=== PATIENT | female | born 1950 | race Caucasian/White ===

== ENCOUNTER 2016-08-02 09:41 | Day surgery (SDC) | payer MEDICARE, OTHER ==
[~2016-08-02] VITALS: Ht 170.2 cm; Wt 84.5 kg
[~2016-08-02 09:41] MED LIST: DOCU-143 PO; HYDR-3729 PO; IBUP-1773 PO; SIME80TA16 PO
[2016-08-02 10:21] LABS: BASOPHILS % (AUTO) 0 % (0-10); EOSINOPHILS # (AUTO) 0.1 10^3/uL (0.0-0.3); EOSINOPHILS % (AUTO) 1 % (0-10); LYMPHOCYTES # (AUTO) 2.1 X 10^3 (1.0-4.0); LYMPHOCYTES % (AUTO) 25 % (12-44); MEAN CORPUSCULAR HEMOGLOBIN 32 PG (25-34); MEAN CORPUSCULAR HGB CONC 34 G/DL (32-36); MEAN CORPUSCULAR VOLUME 93 FL (80-99); MEAN PLATELET VOLUME 9.8 FL (7.4-10.4); MONOCYTES # (AUTO) 0.5 X 10^3 (0.0-1.0); MONOCYTES % (AUTO) 6 % (0-12); NEUTROPHILS # (AUTO) 5.7 X 10^3 (1.8-7.8); NEUTROPHILS % (AUTO) 67 % (42-75); PLATELET COUNT 263 10^3/uL (130-400); RED BLOOD COUNT 4.65 10^6/uL (4.35-5.85); RED CELL DISTRIBUTION WIDTH 12.3 % (10.0-14.5); WHITE BLOOD COUNT 8.4 10^3/uL (4.3-11.0)
[2016-08-02 10:47] LABS: ALANINE AMINOTRANSFERASE 52 U/L (0-55); ALBUMIN 4.5 G/DL (3.2-4.5); ANION GAP 10 MMOL/L (5-14); ASPARTATE AMINO TRANSFERASE 18 U/L (5-34); BILIRUBIN,TOTAL 0.8 MG/DL (0.1-1.0); BLOOD UREA NITROGEN 17 MG/DL (7-18); BUN/CREATININE RATIO 23; CALCIUM 10.1 MG/DL (8.5-10.1); CARBON DIOXIDE 25 MMOL/L (21-32); CHLORIDE 106 MMOL/L (98-107); CREATININE SERUM 0.74 MG/DL (0.60-1.30); GFR ESTIMATED > 60; GLUCOSE 111 MG/DL (70-105); SODIUM 141 MMOL/L (135-145); TOTAL PROTEIN 7.9 G/DL (6.4-8.2)
--- NOTE | 2016-08-02 11:55 | Diagnostic Imaging Report ---
PROCEDURE: US Gallbladder. TECHNIQUE: Multiple real-time grayscale images were obtained over the right upper quadrant in various projections. Right upper quadrant sonogram INDICATION: Right upper quadrant pain. FINDINGS: The liver demonstrates no evidence of a focal intrahepatic abnormality or evidence of intrahepatic biliary dilatation. There is a large stone within the gallbladder near the gallbladder neck. Gallbladder wall measures 3 mm. There is no evidence of gallbladder wall thickening. The common bile duct could not be demonstrated. The pancreas is obscured by overlying bowel gas. The right kidney is nonobstructed. There is no ascites. The patient did report pain related to the transducer over the gallbladder. IMPRESSION: 1. Large gallstone within the gallbladder with a positive sonographic Brantley's sign. While there is no significant gallbladder wall thickening or evidence of pericholecystic fluid, a HIDA scan would be useful to evaluate for cholecystitis if clinically indicated. Dictated by: Dictated on workstation # [id number]
--- NOTE | 2016-08-02 13:33 | ED Abdominal Pain ---
General Chief Complaint: Abdominal/GI Problems Stated Complaint: PAIN BETWEEN CHEST AND STOMACH Nursing Triage Note: PT C/O RUQ AND EPIGASTRIC PAIN SINCE LAST NIGHT AFTER EATING. Sepsis Screen: No Definite Risk Source of Information: Patient History of Present Illness Time Seen By Provider: 11:01 Initial Comments The patient is a 66-year-old white female whose parents are known to me. She reports that about 1 month ago she had a perhaps 15 minute episode of right upper quadrant pain and epigastric pain following eating. She reports last night she developed pain after eating which has continued unabated until her arrival. This is the fourth episode altogether. She had done some Internet medical exploration and concluded that she had gallbladder disease. She was informed that I thought this to be likely as well. Severity/Quality: Moderate Location: RUQ, Epigastric Radiation: No Radiation Activities at Onset: Other Allergies and Home Medications Allergies Coded Allergies: No Known Drug Allergies (Unverified , 09/18/15) Home Medications Docusate Sodium 100 Mg Capsule, 100 MG PO BID, #60 Prescribed by: EVA ARIAS on 10/22/15 1245 Hydrocodone/Acetaminophen 1 Each Tablet, 1-2 EACH PO Q4H PRN for PAIN, #30 Prescribed by: EVA ARIAS on 10/22/15 1243 Ibuprofen 600 Mg Tablet, 600 MG PO Q6H, #60 Prescribed by: EVA ARIAS on 10/22/15 1245 Simethicone 80 Mg Tab.chew, 80 MG PO Q8H PRN for GAS, #30 Prescribed by: EVA ARIAS on 10/22/15 1245 Review of Systems Constitutional: see HPI EENTM: No Symptoms Reported Respiratory: No Symptoms Reported Gastrointestinal: See HPI, Nausea Genitourinary: No Symptoms Reported Musculoskeletal: no symptoms reported Skin: no symptoms reported Psychiatric/Neurological: No Symptoms Reported Endocrine: No Symptoms Reported Past Fyrbuld-Fujnyl-Rlvqvq Hx Patient Social History Alcohol Use: Denies Use Recreational Drug Use: No Smoking Status: Never a Smoker 2nd Hand Smoke Exposure: No Recent Foreign Travel: No Contact w/Someone Who Travel: No Recent Infectious Disease Expo: No Recent Hopitalizations: No Seasonal Allergies Seasonal Allergies: No Surgeries HX Surgeries: Yes (D&C) Surgeries: Hysterectomy Respiratory Hx Respiratory Disorders: No Cardiovascular Hx Cardiac Disorders: No Neurological Hx Neurological Disorders: No Reproductive System Hx Reproductive Disorders: Yes (PMB) Genitourinary Hx Genitourinary Disorders: No Gastrointestinal Hx Gastrointestinal Disorders: No Musculoskeletal Hx Musculoskeletal Disorders: No HEENT HX ENT Disorders: Yes (glasses, ) Cancer Hx Cancer: No Psychosocial Hx Psychiatric Problems: No Integumentary HX Skin/Integumentary Disorder: No Blood Transfusions Hx Blood Disorders: No Family Medical History Family Medial History: Cardiovascular disease G8 BROTHER Completed stroke 19 FATHER Dementia 19 MOTHER Diabetes mellitus 19 MOTHER Physical Exam Vital Signs VS - Last 72 Hours, by Label 08/02/16 09:45 Temp 97.4 Pulse 57 Resp 20 B/P (MAP) 148/98 Pulse Ox 100 O2 Delivery Room Air Capillary Refill : Less Than 3 Seconds General Appearance: mild distress, moderate distress HEENT: normal ENT inspection Neck: full range of motion Respiratory: chest non-tender, lungs clear, normal breath sounds, no respiratory distress, no accessory muscle use Cardiovascular: normal peripheral pulses, regular rate, rhythm, no edema, no gallop, no JVD, no murmur Gastrointestinal: other (pain to palpation epigastrium and Brantley's point) Extremities: normal range of motion, non-tender, normal inspection, no pedal edema, no calf tenderness, normal capillary refill, pelvis stable Neurologic/Psychiatric: estimation manager II-XII nml as tested, no motor/sensory deficits, alert, normal mood/affect, oriented x 3 Skin: normal color, warm/dry Lymphatic: no adenopathy Progress/Results/Core Measures Results/Orders Lab Results Laboratory Tests Test 08/02/16 10:12 Range/Units White Blood Count 8.4 4.3-11.0 10^3/uL Red Blood Count 4.65 4.35-5.85 10^6/uL Hemoglobin 14.8 11.5-16.0 G/DL Hematocrit 43 35-52 % Mean Corpuscular Volume 93 80-99 FL Mean Corpuscular Hemoglobin 32 25-34 PG Mean Corpuscular Hemoglobin Concent 34 32-36 G/DL Red Cell Distribution Width 12.3 10.0-14.5 % Platelet Count 263 130-400 10^3/uL Mean Platelet Volume 9.8 7.4-10.4 FL Neutrophils (%) (Auto) 67 42-75 % Lymphocytes (%) (Auto) 25 12-44 % Monocytes (%) (Auto) 6 0-12 % Eosinophils (%) (Auto) 1 0-10 % Basophils (%) (Auto) 0 0-10 % Neutrophils # (Auto) 5.7 1.8-7.8 X 10^3 Lymphocytes # (Auto) 2.1 1.0-4.0 X 10^3 Monocytes # (Auto) 0.5 0.0-1.0 X 10^3 Eosinophils # (Auto) 0.1 0.0-0.3 10^3/uL Basophils # (Auto) 0.0 0.0-0.1 10^3/uL Sodium Level 141 135-145 MMOL/L Potassium Level 4.0 3.6-5.0 MMOL/L Chloride Level 106 98-107 MMOL/L Carbon Dioxide Level 25 21-32 MMOL/L Anion Gap 10 5-14 MMOL/L Blood Urea Nitrogen 17 7-18 MG/DL Creatinine 0.74 0.60-1.30 MG/DL Estimat Glomerular Filtration Rate > 60 BUN/Creatinine Ratio 23 Glucose Level 111 H 70-105 MG/DL Calcium Level 10.1 8.5-10.1 MG/DL Total Bilirubin 0.8 0.1-1.0 MG/DL Aspartate Amino Transf (AST/SGOT) 18 5-34 U/L Alanine Aminotransferase (ALT/SGPT) 52 0-55 U/L Alkaline Phosphatase 107 40-136 U/L Total Protein 7.9 6.4-8.2 G/DL Albumin 4.5 3.2-4.5 G/DL My Orders Orders - ALAYNA SCHUSTER MD Cbc With Automated Diff (08/02/16 10:04) Comprehensive Metabolic Panel (08/02/16 10:04) Us Gallbladder [id number] (08/02/16 11:01) Vital Signs/I&O Vital Sign - Last 12Hours 08/02/16 09:45 Temp 97.4 Pulse 57 Resp 20 B/P (MAP) 148/98 Pulse Ox 100 O2 Delivery Room Air Blood Pressure Mean: 115 Departure Communication Progress Notes Ultrasound shows a large gallstone and sonographic probe elicitation of Brantley' s sign [address] Hsieh who is surgery on-call. Patient will be admitted for cholecystectomy in a.m. Impression Impression: Primary Impression: acute cholecystitis Disposition: ADMITTED INPATIENT Condition: Stable/Unchanged Decision to Admit Reason: Admit from ER (General) Decision to Admit/Date: Aug 02, 2016 Time/Decision to Admit Time: 13:36 Departure-Patient Inst. Referrals: RITESH CABRERA MD (PCP) Primary Care Physician EVA ARIAS MD (Family) Primary Care Physician ALAYNA SCHUSTER MD Aug 02, 2016 13:33
[2016-08-02 14:30] VITALS: BP 167/79
[2016-08-02] MEDS: fentaNYL INJECTION 100 MCG/2 ML AMP IV PRN ×2 (14:45→16:59)
[2016-08-02] MEDS: NS IV 1000 ML 1,000 ML IV SCH (14:45)
[2016-08-02] MEDS: metroNIDAZOLE 500 MG/100 ML IVPB (PRE-MIX) IV SCH ×2 (14:53→21:19)
--- NOTE | 2016-08-02 15:44 | HISTORY AND PHYSICAL ---
DATE OF SERVICE: 08/02/2016 PRIMARY CARE PHYSICIAN: Dr. Brigida Rodrigues. HISTORY OF PRESENT ILLNESS: The patient is a 66-year-old female who presented to [facility] Emergency Department with pain in the right upper abdominal quadrant. She reports that approximately 1 month ago she had her first episode, which occurred after eating a meal and persisted for approximately 15 minutes. She ate a meal last night and did develop the same type of pain which was more severe and did not resolve over time. She reports that this is her fourth total episode. She does not report any nausea or vomiting, nor any fever nor chills. An ultrasound was performed, which did show a large gallstone. PAST MEDICAL HISTORY: None. PAST SURGICAL HISTORY: D and C, hysterectomy. ALLERGIES: No known drug allergies. MEDICATIONS: Colace 100 mg b.i.d., ibuprofen p.r.n., hydrocodone p.r.n. SOCIAL HISTORY: Negative smoke. Negative alcohol. FAMILY HISTORY: Father stroke. Mother, diabetes. VITAL SIGNS: Temperature 97.4, blood pressure 148/98, pulse 57, respirations 20, pulse ox 100% on room air. REVIEW OF SYSTEMS: Well-nourished female currently in no acute distress. She is not experiencing shortness of breath or difficulty breathing. No chest pain, palpitations, diaphoresis. No nausea, vomiting with pain in the right upper abdominal quadrant, usually after meals, which is sharp in nature. No diarrhea, constipation. No red blood per rectum, no dark tarry stools. No fever or chills. No recent inadvertent weight loss. PHYSICAL EXAMINATION: CHEST: Clear. HEART: Regular. EXTREMITIES: No lower extremity edema. Negative Homans sign. HEENT: No scleral icterus. NECK: No cervical lymphadenopathy. ABDOMEN: Soft, nondistended. There is pain in the right upper abdominal quadrant upon palpation with voluntary guarding. No rebound. LABORATORY DATA: WBC 8.4, hemoglobin 14.8, hematocrit 43, platelets 263, BUN 17, creatinine 0.74. Total bilirubin 0.8. ASSESSMENT AND PLAN: A 66-year-old female with symptomatic chronic calculous cholecystitis. The natural history of gallbladder disease was explained to the patient including the risks and benefits of surgery. She is in full understanding of the risks and benefits and would like to proceed with a laparoscopic cholecystectomy on this admission, which we will schedule. Job ID: [id number] DocumentID: [id number] Dictated Date: 08/02/2016 15:14:13 Differential Repairer Date: 08/02/2016 15:43:49 Dictated By: RENATO CARLTON MD
[2016-08-02] MEDS: CIPROFLOXACIN 400 MG/D5W 200 ML (PRE-MIX) IV SCH (15:57)
[2016-08-02 15:59] VITALS: BP 144/67
[2016-08-02] MEDS: ONDANSETRON 4 MG/2 ML (SDV) Z0FRAN IVP PRN ×2 (17:04→22:51)
[2016-08-02] MEDS ORDERED: HYDROcodone/APAP 7.5 MG/325 MG (LORTAB, LORCET PLUS) TABLET PO ONE (19:18)
[2016-08-02] MEDS: HYDROcodone/APAP 7.5 MG/325 MG (LORTAB, LORCET PLUS) TABLET PO PRN ×2 (19:23→23:21)
[2016-08-02 19:53] VITALS: BP 123/74
--- NOTE | 2016-08-02 21:06 | Progress Note-Pre Operative ---
Pre-Operative Progress Note H&P Reviewed The H&P was reviewed, patient examined and no changes noted. Date Seen by Provider: Aug 02, 2016 Time Seen by Provider: 18:00 Date H&P Reviewed: Aug 02, 2016 Time H&P Reviewed: 18:00 Pre-Operative Diagnosis: symptomatic chronic calculous cholecystitis RENATO CARLTON MD Aug 02, 2016 21:06
[2016-08-02 23:40] VITALS: BP 119/55
[2016-08-03] MEDS: CIPROFLOXACIN 400 MG/D5W 200 ML (PRE-MIX) IV SCH ×2 (03:20→16:57)
[2016-08-03 04:00] VITALS: BP 119/57
[2016-08-03] MEDS: NS IV 1000 ML 1,000 ML IV SCH ×2 (04:13→18:56)
[2016-08-03] MEDS: ONDANSETRON 4 MG/2 ML (SDV) Z0FRAN IVP PRN (05:25)
[2016-08-03] MEDS: metroNIDAZOLE 500 MG/100 ML IVPB (PRE-MIX) IV SCH ×3 (05:25→21:47)
[2016-08-03 08:35] VITALS: BP 120/59
[2016-08-03] MEDS ORDERED: BUP/EPI 0.5% 1:200,000 (SENSORCAINE) 30 ML VIAL ONE (09:24)
[2016-08-03] MEDS: LACTATED RINGERS 1,000 ML IV PRN ×2 (09:35→10:54)
[2016-08-03] MEDS ORDERED: ROCURONIUM 50 MG/5 ML (ZEMURON) VIAL IV ONE (09:46)
[2016-08-03] MEDS ORDERED: MIDAZOLAM 2 MG/2 ML (VERSED) VIAL ONE (09:46)
[2016-08-03] MEDS ORDERED: SEVOFLURANE (ULTANE) 15 ML INHAL SOLN ONE ×8 (09:46→11:39)
[2016-08-03] MEDS ORDERED: fentaNYL INJECTION 250 MCG/5 ML AMP ONE (09:46)
[2016-08-03] MEDS ORDERED: DEXAMETHASONE PF 10 MG/ML (DECADRON) VIAL ONE (09:46)
[2016-08-03] MEDS ORDERED: proPOfol 200 MG/20 ML (DIPRIVAN) VIAL IV ONE (09:46)
[2016-08-03] MEDS ORDERED: LACTATED RINGERS 1,000 ML IV ONE ×2 (09:46→11:39)
[2016-08-03] MEDS ORDERED: LIDOCAINE PF 2% 5 ML (XYLOCAINE) VIAL ONE (09:46)
[2016-08-03] MEDS ORDERED: ONDANSETRON 4 MG/2 ML (SDV) Z0FRAN ONE (09:46)
[2016-08-03] MEDS ORDERED: PROMETHAZINE INJ 25 MG/ML (PHENERGAN) AMP ONE (10:30)
[2016-08-03] MEDS ORDERED: ceFAZolin 1,000 MG (ANCEF) VIAL IV ONE (10:30)
[2016-08-03] MEDS ORDERED: morphine INJ 10 MG/ML 1ML (SYR OR VIAL) ONE (10:30)
[2016-08-03] MEDS ORDERED: ceFAZolin 1,000 MG (ANCEF) VIAL ONE (11:39)
[2016-08-03] MEDS ORDERED: GLYCOPYRROLATE 0.2 MG/ML (ROBINUL) 2 ML VIAL ONE (11:39)
[2016-08-03] MEDS ORDERED: NEOSTIGMINE (BLOXIVERZ ) 1 MG/1ML 10 ML VIAL ONE (11:39)
--- NOTE | 2016-08-03 12:01 | Progress Note-Post Operative ---
Post-Operative Progess Note Surgeon (s)/Bullet Maker (s) Surgeon RENATO CARLTON MD Bullet Maker: tiffani felton CHINCHILLA MACHINE OPERATOR Pre-Operative Diagnosis symptomatic chronic calculous cholecystitis Post-Operative Diagnosis acute calculous cholecystitis Procedure & Operative Findings Date of Procedure 08/03/16 Procedure Performed/Findings laparoscopic cholecystectomy Anesthesia Type GET Estimated Blood Loss Estimated blood loss (mL): minimal Specimens/Packing Specimens Removed gallbladder RENATO CARLTON MD Aug 03, 2016 12:01 pm
[2016-08-03] MEDS ORDERED: CIPR-225 PO (12:07)
[2016-08-03] MEDS ORDERED: HYDR-3730 PO (12:07)
--- NOTE | 2016-08-03 12:09 | Discharge Inst-Surgical ---
D/C Lap Instructions-BRANDT New, Converted, or Re-Newed RX: RX on Chart Follow Up Appt in 2 weeks Activity as tolerated No driving for 24 hours No driving while on pain medications Incentive Spirometry use every 2 hours while awake Regular Diet Symptoms to Report: Fever over 101 degree F, Nausea/Vomiting Infection Signs and Symptoms to report: Increased redness, Foul odor of wound, Increased drainage Bathing instructions: May shower Operative Area Clean/Dry; Keep incision clean/dry If any problems/questions: Contact your physician or go to Emergency Room RENATO CARLTON MD Aug 03, 2016 12:09 pm
[2016-08-03] MEDS: morphine INJ 10 MG/ML 1ML (SYR OR VIAL) IVP PRN ×2 (12:20→12:39)
[2016-08-03] MEDS ORDERED: ONDANSETRON 4 MG/2 ML (SDV) Z0FRAN IVP PRN (12:30)
[2016-08-03] MEDS ORDERED: PROMETHAZINE INJ 25 MG/ML (PHENERGAN) AMP IVP PRN (12:30)
[2016-08-03] MEDS ORDERED: fentaNYL INJECTION 100 MCG/2 ML AMP IVP PRN (12:30)
[2016-08-03 12:57] VITALS: BP 145/77
[2016-08-03 15:37] VITALS: BP 107/53
[2016-08-03] MEDS: HYDROcodone/APAP 7.5 MG/325 MG (LORTAB, LORCET PLUS) TABLET PO PRN ×2 (16:58→23:46)
--- NOTE | 2016-08-03 19:30 | OPERATIVE REPORT ---
DATE OF SERVICE: 08/03/2016 ATTENDING PHYSICIAN: Dr. Rodrigues. PREOPERATIVE DIAGNOSIS: Chronic calculous cholecystitis. POSTOPERATIVE DIAGNOSIS: Acute calculous cholecystitis. PROCEDURE: Laparoscopic cholecystectomy. SURGEON: Dr. Carlton. PIGMENT PUSHER: Anant Diaz APRN. ANESTHESIA: General endotracheal. ESTIMATED BLOOD LOSS: 50 mL. FINDINGS: Acutely inflamed gallbladder with a large gallstone with gallbladder wall inflammation. DISPOSITION: The patient tolerated the procedure well. The patient is a 66-year-old female who presented to [facility] Emergency Department with right upper abdominal quadrant pain. She had reported that the pain had started the night before and was in the right upper abdominal quadrant with radiation towards the back and this time persisted. She had reported three other episodes with the first one approximately one month ago and each has progressively worsened. An ultrasound was performed which did show a large gallstone. DESCRIPTION OF PROCEDURE: The patient was brought to the operating room, laid supine on the table. After adequate IV pain and sedating medications and general endotracheal intubation, the abdomen was prepped and draped in standard surgical fashion. 0.5% Marcaine with epinephrine was then used to anesthetize the overlying skin in the left upper abdominal quadrant. A small transverse skin incision made using a 15 blade. An 0 silk suture was applied to the medial aspect of the incision for retraction and a Veress needle inserted with a low opening pressure of 0 mmHg and abdomen was then insufflated to 15 mmHg pressure. The Veress needle removed and a 5 mm Xcel trocar placed followed by a 5 mm, 45 degree angle laparoscope visualizing the peritoneal cavity. A 4 quadrant abdominal exploration was performed. There was a mild liver steatosis. There was an inflamed gallbladder, which was dilated as well consistent with acute cholecystitis. Under direct visualization, we then proceeded to place a supraumbilical 10 mm port after the skin and peritoneum were anesthetized using 0.5% Marcaine with epinephrine and a transverse skin incision made using a 15 blade. In a similar manner, a right upper abdominal quadrant 5 mm port was placed. The gallbladder was then decompressed using a laparoscopic needle and the fluid was clear consistent with hydrops of the gallbladder. The fundus of the gallbladder was then retracted anteriorly and superiorly. There were a few omental adhesions to the gallbladder, which were bluntly dissected off. Before this, the patient was placed in reverse Trendelenburg position as well as plane right side up, left side down. The hepatoduodenal ligament was then opened using blunt dissection as well as electrocautery on the hook instrument. The entire critical view of safety was identified including the triangle of Calot as well as the cystic duct and artery going into the gallbladder as well as the liver behind the proximal gallbladder. A timeout was then taken and the cystic duct and artery were then clipped proximally and distally and cut with EndoShears. The gallbladder was then dissected off of the liver bed using electrocautery on the hook instrument with visualization and good hemostasis. There was some oozing identified and Surgicel placed in the hepatic bed. The gallbladder was removed through the 10 mm port site using an EndoCatch bag. A very large solitary stone was identified. The 10 mm port site fascia and peritoneum were then closed using interrupted 3-0 Vicryl transversely using a Cody-Sully device. The abdomen was desufflated and remaining ports removed. All skin incisions were closed using 4-0 Monocryl running subcuticular sutures. Wounds were then cleaned and covered with Dermabond. The patient tolerated the procedure well. We will start IV and oral pain medication as well as a clear liquid diet. Once she is tolerating clears and has good pain control with oral pain medication and is ambulating well, we will discharge her home. Job ID: [id number] DocumentID: [id number] Dictated Date: 08/03/2016 12:15:49 Customs Guard Date: 08/03/2016 19:30:29 Dictated By: RENATO CARLTON MD
[2016-08-03 20:04] VITALS: BP 96/50
[2016-08-04 00:17] VITALS: BP 138/63
[2016-08-04] MEDS: CIPROFLOXACIN 400 MG/D5W 200 ML (PRE-MIX) IV SCH (03:34)
[2016-08-04] MEDS: metroNIDAZOLE 500 MG/100 ML IVPB (PRE-MIX) IV SCH ×2 (05:45→14:09)
[2016-08-04] MEDS: NS IV 1000 ML 1,000 ML IV SCH (07:47)
[2016-08-04 08:00] VITALS: BP 112/57
[2016-08-04] MEDS: HYDROcodone/APAP 7.5 MG/325 MG (LORTAB, LORCET PLUS) TABLET PO PRN (08:52)
--- NOTE | 2016-08-04 15:10 | Progress Note-Standard ---
Standard Progress Note Progress Notes/Assess & Plan Date Seen by Provider: Aug 02, 2016 Time Seen by Provider: 18:00 Progress/Assessment & Plan s/p lap isaac. doing much better today. pain controlled and tolerating diet as well as ambulating. home soon. RENATO CARLTON MD Aug 04, 2016 3:10 pm
== END 2016-08-04 15:09 | disposition home or self-care (01) ==
LOC: EDUNIT# 09:41 → ER 09:43 → SDC 13:45 → 4TH 13:52 → SDC 08-04 15:09
PROVIDERS: ATTEND Surgery Pediatric Surgery
DX: K80.00 Calculus of gallbladder with acute cholecystitis without obstruction (principal)
CPT/HCPCS: 36415; 76705; 80053; 85025; 99283; 99285

== ENCOUNTER → 2019-03-17 | Outpatient (CLI) | payer MEDICARE ==
[~2019-03-17] MED LIST changes: +CEPH-507 PO; +CIPR-225 PO; +HYDR-3730 PO
== END ==
LOC: CARD 11:36
PROVIDERS: ATTEND Nurse Practitioner Family
DX: I49.3 Ventricular premature depolarization (principal); I49.1 Atrial premature depolarization
CPT/HCPCS: 93005

== ENCOUNTER 2021-09-09 08:24 | Emergency (ER) | payer MEDICARE, OTHER ==
[~2021-09-09] VITALS: Ht 172.7 cm; Wt 95.3 kg
[2021-09-09] MEDS ORDERED: NS IV 500 ML 500 ML IV ONE (09:30)
[2021-09-09 09:45] LABS: BASOPHILS % (AUTO) 1 % (0-10); EOSINOPHILS # (AUTO) 0.1 10^3/uL (0.0-0.3); EOSINOPHILS % (AUTO) 1 % (0-10); HEMATOCRIT 46 % (35-52); HEMOGLOBIN 15.7 g/dL (11.5-16.0); LYMPHOCYTES % (AUTO) 25 % (12-44); MEAN CORPUSCULAR HEMOGLOBIN 32 pg (25-34); MEAN CORPUSCULAR HGB CONC 35 g/dL (32-36); MEAN CORPUSCULAR VOLUME 94 fL (80-99); MEAN PLATELET VOLUME 9.5 fL (9.0-12.2); MONOCYTES # (AUTO) 0.5 10^3/uL (0.0-1.0); MONOCYTES % (AUTO) 6 % (0-12); NEUTROPHILS # (AUTO) 5.4 10^3/uL (1.8-7.8); NEUTROPHILS % (AUTO) 67 % (42-75); PLATELET COUNT 247 10^3/uL (130-400)
--- NOTE | 2021-09-09 09:56 | ED Neurological Problem ---
General Chief Complaint: Neuro-Stroke Like Symptoms Stated Complaint: BLURRED VISION,[place] Nursing Triage Note: PT AMBULATE TO ROOM 06 WITHOUT DIFFICULTY WITH C/O RIGHT HAND NUMBNESS AND RIGHT EYE BLURRYNESS ON THURSDAY. PT DENIES NUMBNESS OR BLURRED VISION UPON ARRIVAL. PT REPORTS HEADACHE ABOVE LEFT EYE. PT STATES THAT SHE STOPPED BY A GROUP HOME TO SEE HER MOTHER AFTER SYMPTOMS STARTED TO SEE HER MOTHER AND THE NURSE THERE EVALUATED PT AND TOLD HER SHE SHOULD SEEK FURTHER EVALUATION. PT STATES SHE WENT TO [facility] AND WAS TOLD SHE COULD GO TO THE EMERGENCY DEPARTMENT FOR FURTHER EVALUATION. PT STATES SHE DECIDED TO GO HOME INSTEAD. PT STATES THIS MORNING SHE CALLED DR RODRIGUES'S OFFICE AND TOLD THEM SHE WAS GOING TO THE ED. Source: patient Exam Limitations: no limitations History of Present Illness Date Seen by Provider: Sep 09, 2021 Time Seen by Provider: 09:00 Initial Comments Patient to the ER by private conveyance chief complaint that 2 days ago she started having a little right eye blurriness right arm paresthesias without weakness and a headache behind the eyes more on the left side than right. She does not have a history of migraines or headaches. She does not have a history of strokes heart attacks or arterial disease. She does have a history of father with stroke from a hole in his heart at age 62 and 2 brothers with pacemakers. No history of high blood pressure, cholesterol or diabetes. She does not smoke cigarettes. She does wear glasses. She started to come in yesterday but she went to the custodial instead and had a custodial nurse evaluate her and told her her blood pressure was elevated at 170 systolic and so she decided that she did not need to come to the ER. She went to urgent care at [facility] and they checked her blood pressure and blood sugar and then she went home. Today she was going to follow-up with Dr. Rodrigues her primary care doctor and decided to come to the ER instead. She said in the past she had some blurry vision and a work-up revealed a UTI. She is not having any dysuria or discharge today Allergies and Home Medications Allergies Coded Allergies: No Known Drug Allergies (Unverified , 09/18/15) Patient Home Medication List Home Medication List Reviewed: Yes Cephalexin (Keflex) 500 Mg Capsule, 500 MG PO QID Prescribed by: MICHELLE ARORA on 06/21/17 050 Ciprofloxacin HCl (Cipro) 500 Mg Tablet, 500 MG PO BID Prescribed by: RENATO CARLTON on 08/03/16 1207 Hydrocodone/Acetaminophen (Lortab 7.5-325 mg Tablet) 1 Each Tablet, 1-2 EACH PO Q4H Prescribed by: RENATO CARLTON on 08/03/16 1207 Review of Systems Review of Systems Constitutional: No chills, No diaphoresis Eyes: Denies Blindness, Denies Blurred Vision Ears, Nose, Mouth, Throat: denies ear pain, denies ear discharge Respiratory: No cough, No short of breath Cardiovascular: No chest pain, No edema Gastrointestinal: No abdominal pain, No nausea, No vomiting Genitourinary: No discharge, No dysuria Musculoskeletal: No back pain, No joint pain Skin: No pruritus, No rash All Other Systems Reviewed Negative Unless Noted: Yes Past Bgrmfjg-Wwbtgc-Vtvdvk Hx Patient Social History Tobacco Use?: No Smoking Status: Never a Smoker Smokeless Tobacco Frequency: Never a User Use of E-Cig and/or Vaping dev: No Use of E-Cig and/or Vaping Ck: Never a User Substance use?: No Alcohol Use?: No Pt feels they are or have been: No Immunizations Up To Date 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 Seasonal Allergies Seasonal Allergies: No Past Medical History Surgeries: Yes (D&C) Adenoidectomy, Gallbladder, Hysterectomy, Tonsillectomy Respiratory: No Currently Using CPAP: No Currently Using BIPAP: No Cardiac: No Neurological: No Reproductive Disorders: Yes (PMB) Female Reproductive Disorders: Denies Genitourinary: No Gastrointestinal: No Gall Bladder Disease Musculoskeletal: No Endocrine: No HEENT: No Cancer: No Psychosocial: No Integumentary: No Blood Disorders: No Family Medical History Cardiovascular disease G8 BROTHER Completed stroke 19 FATHER Dementia 19 MOTHER Diabetes mellitus 19 MOTHER Physical Exam Vital Signs Vital Signs - First Documented 09/09/21 08:48 Temp 36.1 Pulse 113 Resp 16 B/P (MAP) 151/90 (110) O2 Delivery Room Air Capillary Refill : Less Than 3 Seconds Height, Weight, BMI Height: 5'8.00" Weight: 183lbs. 3.0oz. [id number]; 31.00 BMI Method:Stated General Appearance: WD/WN HEENT: PERRL/EOMI (4mm josh), normal ENT inspection, pharynx normal Neck: full range of motion, supple, normal inspection Respiratory: no respiratory distress, no accessory muscle use Cardiovascular: normal peripheral pulses, regular rate, rhythm, no edema Peripheral Pulses: 2+ Dorsalis Pedis (R), 2+ Left Dors-Pedis (L) Extremities: normal range of motion, normal inspection, no pedal edema, normal capillary refill Neurologic/Psychiatric: product management consultant II-XII nml as tested, no motor/sensory deficits, alert, normal mood/affect, oriented x 3 Crainal Nerves: normal hearing, normal speech, PERRL Skin: normal color, warm/dry Stroke Onset of Symptoms Date of Onset of Symptoms: Sep 07, 2021 Onset of Symptoms: Yes Symptoms onset unknown: Yes NIH Stroke Scale Assessment Select: Initial Level of Consciousness: 0=Alert (0), Level of Consciousness- Questions: 0=Answers both month/age (0), LOC Commands: 0=Performs both tasks (0), Gaze: Normal (0), Visual Arroyo: 0=No visual loss (0), Facial Movement (Facial Paresis): 0=Normal symmetrical mnt (0), Motor Function-Arms Right: 0=No drift (0), Motor Function-Arms Left: 0=No drift (0), Motor Function-Legs Right: 0=No drift (0), Motor Function-Legs Left: 0=No drift (0), Limb Ataxia: 0=Absent (0), Sensory: 0=Normal:no loss (0), Best Language: 0=No aphasia (0), Dysarthria: 0=Normal (0), Extinction & Inattention: 0=No abnormality (0), Total: 0 Stroke Thrombolytic Exclusion TPA Contraindication: No IV - TPa Received IV - TPa Procedure Performed?: No (No benefit to be had) Progress/Results/Core Measures Results/Orders Lab Results Laboratory Tests Test 09/09/21 09:39 09/09/21 10:46 Range/Units White Blood Count 8.0 4.3-11.0 10^3/uL Red Blood Count 4.84 3.80-5.11 10^6/uL Hemoglobin 15.7 11.5-16.0 g/dL Hematocrit 46 35-52 % Mean Corpuscular Volume 94 80-99 fL Mean Corpuscular Hemoglobin 32 25-34 pg Mean Corpuscular Hemoglobin Concent 35 32-36 g/dL Red Cell Distribution Width 12.4 10.0-14.5 % Platelet Count 247 130-400 10^3/uL Mean Platelet Volume 9.5 9.0-12.2 fL Immature Granulocyte % (Auto) 0 % Neutrophils (%) (Auto) 67 42-75 % Lymphocytes (%) (Auto) 25 12-44 % Monocytes (%) (Auto) 6 0-12 % Eosinophils (%) (Auto) 1 0-10 % Basophils (%) (Auto) 1 0-10 % Neutrophils # (Auto) 5.4 1.8-7.8 10^3/uL Lymphocytes # (Auto) 2.0 1.0-4.0 10^3/uL Monocytes # (Auto) 0.5 0.0-1.0 10^3/uL Eosinophils # (Auto) 0.1 0.0-0.3 10^3/uL Basophils # (Auto) 0.0 0.0-0.1 10^3/uL Immature Granulocyte # (Auto) 0.0 0.0-0.1 10^3/uL Sodium Level 143 135-145 MMOL/L Potassium Level 4.3 3.6-5.0 MMOL/L Chloride Level 107 98-107 MMOL/L Carbon Dioxide Level 25 21-32 MMOL/L Anion Gap 11 5-14 MMOL/L Blood Urea Nitrogen 11 7-18 MG/DL Creatinine 0.79 0.60-1.30 MG/DL Estimat Glomerular Filtration Rate 79 BUN/Creatinine Ratio 14 Glucose Level 128 H 70-105 MG/DL Calcium Level 9.5 8.5-10.1 MG/DL Corrected Calcium 9.2 8.5-10.1 MG/DL Total Bilirubin 0.9 0.1-1.0 MG/DL Aspartate Amino Transf (AST/SGOT) 23 5-34 U/L Alanine Aminotransferase (ALT/SGPT) 39 0-55 U/L Alkaline Phosphatase 78 40-136 U/L C-Reactive Protein High Sensitivity 0.31 0.00-0.50 MG/DL Total Protein 7.5 6.4-8.2 GM/DL Albumin 4.4 3.2-4.5 GM/DL Urine Color YELLOW Urine Clarity CLEAR Urine pH 6.0 5-9 Urine Specific Dougherty 1.020 1.016-1.022 Urine Protein NEGATIVE NEGATIVE Urine Glucose (UA) NEGATIVE NEGATIVE Urine Ketones NEGATIVE NEGATIVE Urine Nitrite NEGATIVE NEGATIVE Urine Bilirubin NEGATIVE NEGATIVE Urine Urobilinogen 0.2 < = 1.0 MG/DL Urine Leukocyte Esterase NEGATIVE NEGATIVE Urine RBC (Auto) TRACE-I H NEGATIVE Urine RBC RARE /HPF Urine WBC RARE /HPF Urine Squamous Epithelial Cells 5-10 /HPF Urine Crystals PRESENT H /LPF Urine Amorphous Sediment FEW CHRIS URATES H /LPF Urine Bacteria NEGATIVE /HPF Urine Casts NONE /LPF Urine Mucus MODERATE H /LPF Urine Culture Indicated NO My Orders Orders - LEONIE RAMSEY Ct Head Wo (09/09/21 09:19) Cbc With Automated Diff (09/09/21 09:19) Comprehensive Metabolic Panel (09/09/21 09:19) Hs C Reactive Protein (09/09/21 09:19) Ua Culture If Indicated (09/09/21 09:19) Ed Iv/Invasive Line Start (09/09/21 09:19) Ns Iv 500 Ml (Sodium Chloride 0.9%) (09/09/21 09:30) Medications Given in ED Current Medications Medications Dose Ordered Sig/Teresa Route Start Time Stop Time Status Last Admin Dose Admin Sodium Chloride 500 ml @ 0 mls/hr Q0M ONCE IV 09/09/21 09:30 09/09/21 09:31 DC 09/09/21 09:38 999 MLS/HR Vital Signs/I&O 09/09/21 08:48 Temp 36.1 Pulse 113 Resp 16 B/P (MAP) 151/90 (110) O2 Delivery Room Air Blood Pressure Mean: 110 Progress Progress Note #1: Time: 09:52 Progress Note Plan to do visual acuity screening and collect a CT of the head without IV contrast. We will get some labs. Her blood pressure is 130s systolic. She has some family history as well as age for risk factors. Progress Note #2: Time: 10:32 Progress Note Patient states her headache is gone. Her blurriness in her right eye is consistent with her 20/13 vision on the right eye 20/25 vision in the left eye and 20/20 bilateral. She has not had her eyes checked by Dr. Oviedo in [place] in a while so we have encouraged her to follow-up with the pharmacovigilance specialist. NIH is 0. She is not having any paresthesias. Discussed the case with Dr. Rodrigues who says the patient has not actually been seen in her clinic in 2 years. She labs her last appointment was in May but she has never shown up to any of her appointments since 2019. She is happy to follow the patient up. We discussed risk management and modification of risk factors on a outpatient basis and Dr. Rodrigues agrees that this is a reasonable way to go and the patient would not actually need to stay in the hospital. Diagnostic Imaging Diagonstic Imaging: CT Plain Films/CT/US/NM/MRI: head Comments [facility], [place] NAME: ROSALIO HARRY [facility] REC#: [id number] PT STATUS: REG ER : 1950 PHYSICIAN: LEONIE RAMSEY MD ADMIT DATE: 09/09/21/ER Draft Date of Exam:09/09/21 CT HEAD WO PROCEDURE: CT head without contrast. TECHNIQUE: Multiple contiguous axial images were obtained through the brain without the use of intravenous contrast. Auto Exposure Controls were utilized during the CT exam to meet ALARA standards for radiation dose reduction. INDICATION: Headache. Blurry vision. Right arm paresthesia. COMPARISON: 06/21/2017. FINDINGS: Hxgm-st-intigkkd generalized parenchymal volume loss. No CT evidence of a territorial infarction. No intracranial hemorrhage, mass effect, hydrocephalus or extra-axial fluid collections. Paranasal sinuses and mastoids are clear where seen. No acute osseous findings. IMPRESSION: No acute intracranial CT findings. Dictated on workstation # [id number] Dict: 09/09/21 0959 Trans: 09/09/21 1004 KONSTANTIN [id number] Interpreted by: LUMA SANDHU MD Electronically signed by: Reviewed: Reviewed by Me Departure Impression Primary Impression: Headache Qualified Codes: G44.209 - Tension-type headache, unspecified, not intractable Additional Impression: Blurry vision, right eye Disposition: 01 HOME, SELF-CARE Condition: Stable Departure-Patient Inst. Decision time for Depature: 10:41 Referrals: RITESH RODRIGUES MD (PCP/Family) Primary Care Physician Patient Instructions: Headache, Adult (DC) Add. Discharge Instructions: Follow-up with your eye doctor in the next week or 2 to have your eyes reexamined. Follow-up with Dr. Rodrigues to discuss your risk factors and appropriate work-up of your symptoms. Call for an appointment to be seen in the next 2 to 4 weeks. Return to the ER if you are having facial droop, difficulty speaking, slurred speech, weakness, inability to walk, confusion, etc. All discharge instructions reviewed with patient and/or family. Voiced understanding. LEONIE RAMSEY Sep 09, 2021 09:56
--- NOTE | 2021-09-09 10:05 | Diagnostic Imaging Report ---
PROCEDURE: CT head without contrast. TECHNIQUE: Multiple contiguous axial images were obtained through the brain without the use of intravenous contrast. Auto Exposure Controls were utilized during the CT exam to meet ALARA standards for radiation dose reduction. INDICATION: Headache. Blurry vision. Right arm paresthesia. COMPARISON: 06/21/2017. FINDINGS: Bafg-ei-qmnzckvm generalized parenchymal volume loss. No CT evidence of a territorial infarction. No intracranial hemorrhage, mass effect, hydrocephalus or extra-axial fluid collections. Paranasal sinuses and mastoids are clear where seen. No acute osseous findings. IMPRESSION: No acute intracranial CT findings. Dictated by: Dictated on workstation # [id number]
[2021-09-09 10:06] LABS: ALBUMIN 4.4 GM/DL (3.2-4.5); POTASSIUM 4.3 MMOL/L (3.6-5.0)
[2021-09-09 10:07] LABS: CALCIUM 9.5 MG/DL (8.5-10.1)
[2021-09-09 10:09] LABS: TOTAL PROTEIN 7.5 GM/DL (6.4-8.2)
[2021-09-09 10:10] LABS: BILIRUBIN,TOTAL 0.9 MG/DL (0.1-1.0)
[2021-09-09 10:12] LABS: CREATININE SERUM 0.79 MG/DL (0.60-1.30)
[2021-09-09 10:52] LABS: BILIRUBIN,URINE NEGATIVE (NEGATIVE); CLARITY,URINE CLEAR; COLOR,URINE YELLOW; GLUCOSE, URINE (UA) NEGATIVE (NEGATIVE); KETONES,URINE NEGATIVE (NEGATIVE); LEUKOCYTE ESTERASE ,URINE NEGATIVE (NEGATIVE); NITRITE,URINE NEGATIVE (NEGATIVE); PROTEIN,URINE NEGATIVE (NEGATIVE)
[2021-09-09 11:01] LABS: BACTERIA,URINE NEGATIVE /HPF; RBC,URINE RARE /HPF; WBC,URINE RARE /HPF
[2021-09-09 11:02] LABS: AMORPHOUS SEDIMENT,UR FEW AMOR URATES /LPF
[2021-09-09 12:22] VITALS: BP 142/70
== END 2021-09-09 12:23 | disposition home or self-care (01) ==
LOC: EDUNIT# 08:24 → ER 08:26
DX: H53.8 Other visual disturbances (principal); R03.0 Elevated blood-pressure reading, without diagnosis of hypertension
CPT/HCPCS: 36415; 70450; 80053; 81000; 85025; 86141

== ENCOUNTER 2022-03-16 11:18 | Emergency (ER) | payer MEDICARE, OTHER ==
[~2022-03-16] VITALS: Ht 172 cm; Wt 88.0 kg
[2022-03-16] MEDS ORDERED: ACETAMINOPHEN 500 MG TAB (TYLENOL) PO STA (12:23)
[2022-03-16] MEDS ORDERED: CYCLOBENZAPRINE 10 MG (FLEXERIL) TAB PO STA (12:23)
--- NOTE | 2022-03-16 12:28 | ED Upper Extremity ---
General Chief Complaint: Upper Extremity Stated Complaint: PAIN IN SHOULDER/ARM Nursing Triage Note: PT STATES LAST THURSDAY PT FELT DULL PAIN IN RT ARM, RAD INTO SHOLDER, PT TAKING IBUPROFEN BUT NOT HELPING, THURSDAY PAIN IN SHOULDER GOT WORSE, LAST NIGHT PAIN INTO NECK AND NOT SLEEPING WELL, DENIES CP, SOB OR ANY OTHER ISSUES Source: patient Exam Limitations: no limitations (RAKESH FRANCES) History of Present Illness Date Seen by Provider: Mar 16, 2022 Time Seen by Provider: 11:50 Initial Comments This is a 71yo F with no reported pmhx who presents for right shoulder and arm pain. Patient endorses Rt shoulder, Rt arm, and bilateral trapezius pain since 10Mar2022. Described as a dull ache. Pain continued to worsen causing patient to have poor sleep. Denies numbness, paresthesias, head ache, changes in vision, vertigo, or chest pain. Patient took 400mg ibuprofen at 0930 today with minimal relief. She has only tried cold on the local area, has not tried heat for relief. Reports she does not take any home medications, does not have any known drug allergies. Onset: last week Severity: moderate Pain/Injury Location: left shoulder, left arm Method of Injury: unknown Modifying Factors: Improves With Pain Medication (Ibuprofen slightly improves), Improves With Other (Cold does not help, pt has not attempted heat) (RAKESH FRANCES) Initial Comments Patient history and assessmetn completed by Medical student, reviewed and assessed by this provider (AYSE MUNOZ) Allergies and Home Medications Allergies Coded Allergies: No Known Drug Allergies (Unverified , 09/18/15) Patient Home Medication List Home Medication List Reviewed: Yes (AYSE MUNOZ) Cephalexin (Keflex) 500 Mg Capsule, 500 MG PO QID Prescribed by: MICHELLE ARORA on 06/21/17 0509 Ciprofloxacin HCl (Cipro) 500 Mg Tablet, 500 MG PO BID Prescribed by: RENATO CARLTON on 08/03/16 1207 Hydrocodone/Acetaminophen (Lortab 7.5-325 mg Tablet) 1 Each Tablet, 1-2 EACH PO Q4H Prescribed by: RENATO CARLTON on 08/03/16 1207 Review of Systems Constitutional: no symptoms reported Cardiovascular: no symptoms reported Musculoskeletal: muscle pain (Rt arm, shoulder, bilateral trapezius), muscle stiffness (Rt arm, shoulder, bilateral trapezius) (RAKESH FRANCES) All Other Systems Reviewed Negative Unless Noted: Yes (AYSE MUNOZ) Past Lmxwewc-Cmbkpa-Dffolt Hx Patient Social History Tobacco Use?: No Substance use?: No Alcohol Use?: No (RAKESH FRANCES) Immunizations Up To Date Second COVID19 Vaccination Sekou: YES (RAKESH FRANCES) Seasonal Allergies Seasonal Allergies: No (RAKESH FRANCES) Past Medical History Surgery/Hospitalization HX: GALLBLADDER, HYSTERECTOMY Surgeries: Yes (D&C) Adenoidectomy, Gallbladder, Hysterectomy, Tonsillectomy Respiratory: No Currently Using CPAP: No Currently Using BIPAP: No Cardiac: No Neurological: No Reproductive Disorders: Yes (PMB) Female Reproductive Disorders: Denies Genitourinary: No Gastrointestinal: No Gall Bladder Disease Musculoskeletal: No Endocrine: No HEENT: No Cancer: No Psychosocial: No Integumentary: No Blood Disorders: No (RAKESH FRANCES) Family Medical History Reviewed Nursing Family Hx (AYSE MUNOZ) Cardiovascular disease G8 BROTHER Completed stroke 19 FATHER Dementia 19 MOTHER Diabetes mellitus 19 MOTHER Physical Exam Vital Signs Vital Signs - First Documented 03/16/22 11:43 Temp 36.8 Pulse 124 Resp 20 B/P (MAP) 168/94 (118) Pulse Ox 99 O2 Delivery Room Air (AYSE MUNOZ) Vital Signs Capillary Refill : Less Than 3 Seconds (RAKESH FRANCES) Height, Weight, BMI Height: 5'8.00" Weight: 183lbs. 3.0oz. 83.404269nx; 29.00 BMI Method:Stated General Appearance: WD/WN, no apparent distress Neck: non-tender, full range of motion, normal inspection, other (Hypertensive paracervical muscles) Cardiovascular: regular rate, rhythm, no edema, no murmur Respiratory: chest non-tender, lungs clear, normal breath sounds, no respiratory distress, no accessory muscle use Shoulder: normal inspection, no evidence of injury, normal ROM, soft tissue tenderness (Tenderness of lateral arm/shoulder, localized to deltoid muscle. Tenderness and significant muscle tension of bilateral upper trapezius. Normal ROM, 5/5 strength in all motions. Negative empty can test and infraspinatus test. ) Elbow/Forearm: normal inspection, non-tender, no evidence of injury, normal ROM Neurologic/Psychiatric: no motor/sensory deficits, alert, normal mood/affect, oriented x 3 Skin: normal color, warm/dry (RAKESH FRANCES) Full ROM to right shoulder, ext rotators V/V. TTP bilat trapezius, no cervical vertebral pain. (AYSE MUNOZ) Progress/Results/Core Measures Results/Orders My Orders Orders - AYSE MUNOZ Acetaminophen Tablet (Tylenol Tablet) (03/16/22 12:23) Cyclobenzaprine Tablet (Flexeril Tablet) (03/16/22 12:23) (AYSE MUNOZ) Vital Signs/I&O 03/16/22 11:43 Temp 36.8 Pulse 124 Resp 20 B/P (MAP) 168/94 (118) Pulse Ox 99 O2 Delivery Room Air (AYSE MUNOZ) Blood Pressure Mean: 118 Departure Impression Primary Impression: Trapezius strain Qualified Codes: S46.819A - Strain of other muscles, fascia and tendons at shoulder and upper arm level, unspecified arm, initial encounter Additional Impression: Shoulder pain, right Qualified Codes: M25.511 - Pain in right shoulder Disposition: 01 HOME, SELF-CARE Condition: Improved Departure-Patient Inst. Decision time for Depature: 12:20 (AYSE MUNOZ) Referrals: RITESH CABRERA MD (PCP/Family) Primary Care Physician Patient Instructions: Shoulder Pain (DC), Cervical Muscle Strain (DC) Add. Discharge Instructions: Use warm, moist compresses to areas of pain or heating pad for 20 min. Alternate Tylenol 1000 mg and Ibuprofen 600 mg ever 4 hours for pain. Activity as tolerated. Avoid activities that cause pain. Follow up with your primary care, if symptoms are not improving in 3-4 days, sooner if they worsen. Return to Emergency Dept for new, urgent healthcare concerns. All discharge instructions reviewed with patient and/or family. Voiced understanding. Scripts Cyclobenzaprine HCl (Cyclobenzaprine HCl) 10 Mg Tablet 10 MG PO Q8H PRN for SPASMS, #15 TAB 0 Refills Prov: AYSE MUNOZ 03/16/22 patient assessed by this provider, documented by medical student reviewed and agree with findings. (AYSE MUNOZ) RAKESH FRANCES Mar 16, 2022 12:28 AYSE MUNOZ Mar 16, 2022 12:49
[2022-03-16] MEDS ORDERED: CYCL10TA25 PO (13:00)
[2022-03-16 13:23] VITALS: BP 133/68
== END 2022-03-16 13:24 | disposition home or self-care (01) ==
LOC: EDUNIT# 11:18 → ER 11:20
DX: S46.811A Strain of other muscles, fascia and tendons at shoulder and upper arm level, right arm, initial encounter (principal); S46.812A Strain of other muscles, fascia and tendons at shoulder and upper arm level, left arm, initial encounter; X58.XXXA Exposure to other specified factors, initial encounter